=== PATIENT | male | born 1995 | race Two or more races ===

== ENCOUNTER 2017-07-03 04:23 | Emergency (ER) | payer SELFPAY ==
[2017-07-03] MEDS: FAMOTIDINE 20 MG TABLET. PO (05:13)
[2017-07-03] MEDS: METOCLOPRAMIDE 10 MG TABLET. PO (05:13)
[2017-07-03] MEDS: LIDO:MAALOX 1:1 20 ML SINGLE DOSE. SWSW (05:14)
== END 2017-07-03 05:25 | disposition home or self-care (01) ==
LOC: ER 04:23
DX: K21.9 Gastro-esophageal reflux disease without esophagitis (principal); J45.909 Unspecified asthma, uncomplicated; F14.10 Cocaine abuse, uncomplicated
CPT/HCPCS: 99283; 99284; J8597

== ENCOUNTER 2017-07-21 12:51 | Emergency (ER) | payer SELFPAY ==
[2017-07-21 13:26] LABS: ADD MAN DIFF? NO
[2017-07-21 13:28] LABS: BASO % 1 % (0-3); EOS # 0.1 x10^3/uL (0.0-0.7); EOS % 1 % (0-3); HEMATOCRIT 44.9 % (39.0-53.0); HEMOGLOBIN 16.1 g/dL (13.0-17.5); LYMPH # 1.4 x10^3/uL (1.0-4.8); LYMPH % 23 % (24-48); MEAN CORPUSCULAR HEMOGLOBIN 32 pg (25-35); MEAN CORPUSCULAR HGB CONC 36 g/dL (31-37); MEAN CORPUSCULAR VOLUME 90 fL (79-100); MONO # 0.5 x10^3/uL (0.0-1.1); MONO % 8 % (0-9); NEUT # 3.9 x10^3uL (1.8-7.7); NEUT % 67 % (31-73); PLATELET COUNT 263 x10^3/uL (140-400); RED CELL DISTRIBUTION WIDTH 13.3 % (11.5-14.5); WHITE BLOOD COUNT 5.9 x10^3/uL (4.0-11.0)
[2017-07-21 13:39] LABS: ANION GAP 10 (6-14); BLOOD UREA NITROGEN 7 mg/dL (8-26); BUN/CREATININE RATIO 10 (6-20); CALCIUM 9.1 mg/dL (8.5-10.1); CARBON DIOXIDE 25 mmol/L (21-32); CHLORIDE 104 mmol/L (98-107); CREATININE 0.7 mg/dL (0.7-1.3); GFR 139.8; GLUCOSE 85 mg/dL (70-99); POTASSIUM 3.7 mmol/L (3.5-5.1); SODIUM 139 mmol/L (136-145)
[2017-07-21 13:40] LABS: ETHANOL 39 mg/dL (0-10)
[2017-07-21] MEDS: ONDANSETRON PF 4 MG/2 ML VIAL. IV (13:43)
[2017-07-21] MEDS: IV NORMAL SALINE 1000ML BAG 1,000 ML IV (13:43)
[2017-07-21 13:45] LABS: ALBUMIN 3.8 g/dL (3.4-5.0); ALBUMIN/GLOBULIN RATIO 1.3 (1.0-1.7); ALK PHOS 93 U/L (46-116); ALT (SGPT) 34 U/L (16-63); AST (SGOT) 20 U/L (15-37); LIPASE 125 U/L (73-393); TOTAL PROTEIN 6.8 g/dL (6.4-8.2)
[2017-07-21 13:52] LABS: CKMB INDEX 0.6 % (0-4); CKMB MASS 0.7 ng/mL (0.0-3.6); CREATINE KINASE 122 U/L (39-308)
[2017-07-21 13:52] LABS: TROPONINI < 0.017 ng/mL (0.000-0.055)
[2017-07-21 14:40] LABS: BILIRUBIN,URINE NEGATIVE (NEG); CLARITY,URINE CLEAR; COLOR,URINE YELLOW; GLUCOSE,URINE NEGATIVE (NEG); NITRITE,URINE NEGATIVE (NEG); PH,URINE 7.5; PROTEIN,URINE NEGATIVE (NEG-TRACE); UROBILINOGEN,URINE 0.2 mg/dL (0.2 mg/dL)
[2017-07-21 14:46] LABS: BACTERIA,URINE 0 /HPF (0-FEW); RBC,URINE 0 /HPF (0-2); WBC,URINE 0 /HPF (0-4)
[2017-07-21 14:53] LABS: BARBITURATES NEG (NEG); BENZODIAZEPINES NEG (NEG); CANNABINOIDS NEG (NEG); COCAINE POS (NEG); METHADONE NEG (NEG); OPIATES NEG (NEG); PHENCYCLIDINE NEG (NEG)
[2017-07-21 14:54] LABS: AMPHETAMINE/METHAMPHETAMINE NEG (NEG); ETHANOL, URINE POS (NEG)
== END 2017-07-21 16:12 | disposition home or self-care (01) ==
LOC: ER 16:12
DX: F14.10 Cocaine abuse, uncomplicated (principal); F12.90 Cannabis use, unspecified, uncomplicated; F10.10 Alcohol abuse, uncomplicated; J45.909 Unspecified asthma, uncomplicated; K21.9 Gastro-esophageal reflux disease without esophagitis; F41.9 Anxiety disorder, unspecified
CPT/HCPCS: 36415; 71045; 80053; 80307; 81001; 82553; 83690; 84484; 85025; 93005; 96374; 96375; 99285-25; G0480; J2060; J2405; J7030

== ENCOUNTER 2017-10-14 22:10 | Emergency (ER) | payer SELFPAY ==
[~2017-10-14] VITALS: Ht 165.1 cm; Wt 70.3 kg
[~2017-10-14 22:10] MED LIST: CLON1TAB4 PO; FAMO40TA57 PO; PANT40TA3 PO
[2017-10-14] MEDS ORDERED: LIDO:MAALOX 1:1 20 ML SINGLE DOSE. PO ONE (23:00)
--- NOTE | 2017-10-14 23:01 | PHYS DOC ---
Past Medical History Past Medical History: Anxiety, Asthma, Depression, GERD Additional Past Medical Histor: Atypical Chest Pain, Palpitations Past Surgical History: No Surgical History Alcohol Use: Heavy Drug Use: Cocaine Adult General Chief Complaint Chief Complaint: GI PROBLEM HPI HPI Patient is a 21 year old male who presents with GERD symptoms. Patient states he has a prior known history of reflux disease. He is not currently treated. Over the last 2 days he has had persistent nausea with some frequent belching and eructation's and a sour taste in his mouth. He has tried some over-the- counter medications without relief. He has not had any vomiting. He has had no fever or chills. He does not have significant abdominal pain. Review of Systems Review of Systems Constitutional: Denies fever Eyes: Denies change in visual acuity HENT: Denies nasal congestion Respiratory: Denies cough or shortness of breath Cardiovascular: No additional information not addressed in HPI GI: Denies abdominal pain or vomiting : Denies dysuria Musculoskeletal: Denies back pain Integument: Denies rash Neurologic: Denies headache All other systems were reviewed and found to be within normal limits, except as documented in this note. Current Medications Current Medications Current Medications Medications (Trade) Dose Ordered Sig/Guillermina Start Time Stop Time Status Last Admin Dose Admin Multi-Ingredient Mouthwash/Gargle (Gi Cocktail) 20 ml 1X ONCE 10/14/17 23:00 10/14/17 23:01 DC 10/14/17 22:53 20 ML Allergies Allergies Allergies Coded Allergies Type Severity Reaction Last Updated Verified No Known Drug Allergies 03/07/13 No Physical Exam Physical Exam Constitutional: Well developed, well nourished, no acute distress but actively belching HENT: Normocephalic, atraumatic, bilateral external ears normal, oropharynx moist Eyes: PERRLA, EOMI Neck: Normal range of motion Cardiovascular:Heart rate regular rhythm, no murmur Lungs & Thorax: Bilateral breath sounds clear Abdomen: Bowel sounds normal, soft, NTTP, no guarding or rebound Skin: Warm, dry, no erythema, no rash Extremities: No tenderness Neurologic: Alert and oriented X 3 Current Patient Data Vital Signs Vital Signs Date Time Temp Pulse Resp B/P (MAP) Pulse Ox O2 Delivery O2 Flow Rate FiO2 10/14/17 22:20 98.1 71 16 121/80 (94) 97 Room Air 98.1 EKG EKG [] Radiology/Procedures Radiology/Procedures [] Course & Med Decision Making Course & Med Decision Making Pertinent Labs and Imaging studies reviewed. (See chart for details) 22:50: Patient is seen and examined. benign abdominal exam. GI cocktail ordered. 23:45: Patient is reevaluated. He is sleeping. His belching symptoms have entirely resolved. He feels much improved. The patient verbalizes complete relief of the symptoms that brought him to the emergency department. As for discharge home. He is placed on Nexium at twice a day dosing. He is provided the number for GI for close follow-up. Dragon Disclaimer Dragon Disclaimer This electronic medical record was generated, in whole or in part, using a voice recognition dictation system. Departure Departure Referrals: NO PCP (PCP) Scripts Esomeprazole Magnesium (NEXIUM CAPSULE) 40 Mg Capsule.dr 1 CAP PO BID, #[id number] CAP 0 Refills Prov: ARIANA RAMOS DO 10/14/17 ARIANA RAMOS DO Oct 14, 2017 23:01
[2017-10-14] MEDS ORDERED: ESOM40CA PO (23:49)
[2017-10-15 00:04] VITALS: BP 125/66
== END 2017-10-15 00:06 | disposition home or self-care (01) ==
LOC: ER 22:10
DX: R14.2 Eructation (principal); R11.0 Nausea; F41.9 Anxiety disorder, unspecified; F32.9 Major depressive disorder, single episode, unspecified; J45.909 Unspecified asthma, uncomplicated; K21.9 Gastro-esophageal reflux disease without esophagitis; F10.10 Alcohol abuse, uncomplicated; Y90.9 Presence of alcohol in blood, level not specified
CPT/HCPCS: 99282; 99283